=== PATIENT | female | born 1970 | race Caucasian/White ===

== ENCOUNTER → 2019-04-28 | Outpatient (CLI) | payer BC ==
--- NOTE | 2019-04-28 14:25 | KCIC ---
EXAM: Pelvic sonogram. HISTORY: Menorrhagia. TECHNIQUE: Transabdominal and transvaginal sonographic imaging of the pelvis was performed. COMPARISON: None. FINDINGS: The uterus measures 10.4 x 6.6 x 4.6 cm. The endometrial stripe measures 6 mm in thickness. The right ovary measures 4.5 x 3.2 x 2.4 cm. The left ovary measures 2.1 x 4.4 x 2.2 cm. There are bilateral simple appearing ovarian cysts, the largest of which measure 2.8 cm of the right and 2.9 cm on the left. There are nabothian cysts within the cervix. IMPRESSION: 1. Bilateral ovarian cysts, the largest of which measures 2.8 cm on the right and 2.9 cm on the left. 2. Nabothian cysts within the cervix. 2. Endometrial stripe within normal limits. Electronically signed by: Natalie Urbina MD (04/28/2019 2:22 PM) [id number]
== END | disposition home or self-care (01) ==
LOC: KCIC US 12:39
PROVIDERS: ATTEND Nurse Practitioner Gerontology
DX: N88.8 Other specified noninflammatory disorders of cervix uteri (principal); N83.202 Unspecified ovarian cyst, left side; N83.201 Unspecified ovarian cyst, right side
CPT/HCPCS: 76830; 76856

== ENCOUNTER → 2021-05-19 | Outpatient (CLI) | payer BC ==
--- NOTE | 2021-05-19 15:21 | KCIC ---
Exam performed: Right shoulder 3 views. HISTORY: Right shoulder pain. DATE OF SERVICE: 05/19/2021. COMPARISON: None available FINDINGS: AP view of the right shoulder in internal and external rotation and Y views obtained. Normal alignmen t of the shoulder joint is preserved. There is no acute fracture or dislocation. No soft tissue swell ing or foreign body seen. IMPRESSION: Negative exam. Electronically signed by: Randi Brothers MD (05/19/2021 3:19 PM) [id number]
== END ==
LOC: KCIC 11:12
PROVIDERS: ATTEND Family Medicine
DX: M75.101 Unspecified rotator cuff tear or rupture of right shoulder, not specified as traumatic (principal); M25.511 Pain in right shoulder
CPT/HCPCS: 73030

== ENCOUNTER → 2021-05-26 | Outpatient (CLI) | payer BC ==
--- NOTE | 2021-05-26 11:33 | KCIC ---
Exam Date: 05/26/2021 8:05 AM MRI RIGHT UPPER EXTREMITY JOINT WITHOUT CONTRAST Indication: Reason: UNSPECIFIED ROTATOR CUFF TEAR OR RUPTURE OF RIGHT SHOULDER / Spl. Instructions: P t injured right shoulder plunging a sink then had a fall. / History: Two recent shoulder injuries wit h pain and LROM, no relief.. TECHNIQUE: Routine multiplanar MR imaging of the shoulder was performed without contrast. FINDINGS: Increased signal in the supraspinatus tendon is consistent with tendinopathy. No full-thickness rotator cuff tendon tear is identified. The supraspinatus, infraspinatus, teres mi nor and subscapularis tendons are otherwise intact. Rotator cuff musculature demonstrates normal sig nal and bulk. Mild degenerative changes are seen at the AC joint. There is an intact type II acromion. No signifi cant fluid is seen in the subacromial/subdeltoid bursa. Long head of the biceps tendon is intact. The posterior labrum is small in size with abnormal signal and morphology suggesting degenerative tearing, though lack of intra-articular contrast limits evalu ation of the labrum. Mild degenerative changes are seen at the glenohumeral joint, with prominent cystic changes in the pr oximal humerus near the bicipital groove. Bone marrow demonstrates benign signal on all sequences wi thout acute fracture. IMPRESSION: Supraspinatus tendinopathy without full-thickness rotator cuff tendon tear. 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 If clinically indicated, the labrum can be further evaluated with MR arthrography. Electronically signed by: Humberto Haynes MD (05/26/2021 11:31 AM) [facility]
== END ==
LOC: KCIC MRI 07:50
PROVIDERS: ATTEND Family Medicine
DX: M19.011 Primary osteoarthritis, right shoulder (principal); M75.81 Other shoulder lesions, right shoulder
CPT/HCPCS: 73221